=== PATIENT | female | born 1955 | race Caucasian/White ===

== ENCOUNTER → 2017-08-27 | Outpatient (CLI) | payer OTHER ==
[~2017-08-27] MED LIST: ESOM20 PO; FAMO40 PO; GLUCHON PO; MULVITMINF PO; PROG100 PO; PROM25 PO; RXHYDMOR2 PO; RXONDA4ODT MM; SUCR1SU PO; [UNRECOGNIZED DRUG - OTHER]
== END ==
LOC: LAB SHORT 07:28 → PLD 07:28 → EDSTATUS 09:12
DX: D22.5 Melanocytic nevi of trunk (principal); D36.17 Benign neoplasm of peripheral nerves and autonomic nervous system of trunk, unspecified
CPT/HCPCS: 88305

== ENCOUNTER 2017-10-25 08:39 | Day surgery (SDC) | payer OTHER ==
[~2017-10-25] VITALS: Ht 167.6 cm; Wt 69.6 kg
[~2017-10-25 08:39] MED LIST changes: +Climara Pro Pa1 EACH; +MEDR2.5 PO; +NAPR500 PO
== END 2017-10-25 10:40 | disposition home or self-care (01) ==
LOC: ORSCSDS 08:39
PROVIDERS: Internal Medicine Gastroenterology
PROC: 0DJD8ZZ Inspection of Lower Intestinal Tract, Via Natural or Artificial Opening Endoscopic (ICD-10-PCS; principal; 2017-10-25 10:00)
DX: Z12.11 Encounter for screening for malignant neoplasm of colon (principal); K63.89 Other specified diseases of intestine; K64.8 Other hemorrhoids; Z79.899 Other long term (current) drug therapy

== ENCOUNTER → 2018-09-29 | Outpatient (CLI) | payer OTHER ==
[2018-10-03 15:07] LABS: HPV 16 Negative (Negative); HPV 18 Negative (Negative); HPV OTHER HR TYPES Negative (Negative)
== END | disposition home or self-care (01) ==
LOC: LAB 10:34 → LAB SHORT 10:34
PROVIDERS: Obstetrics & Gynecology Gynecology
DX: Z12.4 Encounter for screening for malignant neoplasm of cervix (principal)
CPT/HCPCS: 87624; G0123

== ENCOUNTER → 2022-01-31 | Outpatient (CLI) | payer MEDICARE ==
[2022-01-31 13:38] LABS: BASOPHILS ABSOLUTE AUTO 0.08 K/mm3 (0.00-0.23); BASOPHILS PERCENT AUTO 1 % (0-2); EOSINOPHILS ABSOLUTE AUTO 0.13 K/mm3 (0.00-0.68); EOSINOPHILS PERCENT AUTO 2 % (0-6); Hematocrit 40.3 % (33.0-51.0); Hemoglobin 13.9 g/dL (11.5-16.0); IMMATURE GRAN ABSOLUTE AUTO 0.03 K/mm3 (0.00-0.10); IMMATURE GRAN PERCENT AUTO 1 % (0-1); LYMPHOCYTES ABSOLUTE AUTO 1.58 K/mm3 (0.84-5.20); LYMPHOCYTES PERCENT AUTO 26 % (21-46); MONOCYTES ABSOLUTE AUTO 0.46 K/mm3 (0.16-1.47); MONOCYTES PERCENT AUTO 8 % (4-13); Mean Corpuscular HGB 29.7 pg (26.0-34.0); Mean Corpuscular HGB Conc 34.5 g/dL (31.5-36.5); Mean Corpuscular Volume 86 fL (80-100); Mean Platelet Volume 9.4 fL (9.1-12.4); NEUTROPHILS ABSOLUTE AUTO 3.72 K/mm3 (1.96-9.15); NEUTROPHILS PERCENT AUTO 62 % (41-73); Platelet Count 222 K/mm3 (150-400); RDW Coefficient Variation 12.7 % (11.7-14.2); Red Blood Cell Count 4.68 M/mm3 (3.80-5.20)
[2022-01-31 13:55] LABS: Albumin, Blood 4.3 g/dL (3.4-5.0); Albumin/Globulin Ratio 1.7 (0.8-1.8); Bilirubin, Total 0.7 mg/dL (0.1-1.0); Bun/Creatinine Ratio 12.4 (12.0-20.0); Calcium, Blood 8.8 mg/dL (8.5-10.1); Creatinine, Blood 0.97 mg/dL (0.40-1.00); Globulin, Blood 2.6 g/dL (2.2-4.0); Total Protein, Blood 6.9 g/dL (6.4-8.2)
== END | disposition home or self-care (01) ==
LOC: LAB 13:34 → LAB SHORT 13:34
PROVIDERS: General Practice
DX: R07.9 Chest pain, unspecified (principal)
CPT/HCPCS: 80053; 82550; 84484; 85025

== ENCOUNTER 2024-06-07 06:55 | Day surgery (SDC) | payer MEDICARE, OTHER ==
[~2024-06-07] VITALS: Ht 167.6 cm; Wt 76.7 kg
[~2024-06-07 06:55] MED LIST changes: +Balanced Salt Epinephrine Irrigation Solution 500 mL IR SCH; +Diazepam 5 MG Tab PO PRN; +Diazepam 5 MG Tab PO SCH; +Lidocaine HCl/Pf 1% 5 ML VIAL ONE; +Lidocaine HCl/Pf 1% 5 ML VIAL XX SCH; +Moxifloxacin HCL 0.5 MG/0.1 ML 0.4MLSYR LEFTEYE SCH; +NITR.4SL SL; +Ondansetron 4 MG SoluTab MM PRN; +PHENYLEPHRINE\\TROPICAMIDE\\TETRACAINE OPHTHALMIC DILATING SOLN LEFTEYE PRN; +Povidone-Iodine 450 DROP/30 ML Solution LEFTEYE SCH; +Povidone-Iodine 450 DROP/30 ML Solution ONE; +Tetracaine HCl/Pf 0.5% Opth Soln 4 ml ONE; +Triamcinolone Inj Susp 40 MG / ML 1ML Vial INJ SCH; +Triamcinolone Inj Susp 40 MG / ML 1ML Vial ONE; +VITAMIN B-1250 MCG PO; +Vitamin D1000 UNI1 PO
[2024-06-07] MEDS ORDERED: Diazepam 10 MG Tab ONE (07:27)
[2024-06-07] MEDS ORDERED: Tropicamide 1% Opth Soln 15 ML BTL ONE (07:56)
--- NOTE | 2024-06-07 08:26 | NUR ---
06/07/24 0826 Veronika Hurd BP-138/71 P-75 SPO2- 100% W/ BB O2
[2024-06-07 09:02] VITALS: BP 149/81
== END 2024-06-07 09:01 | disposition home or self-care (01) ==
LOC: ORSCSDS 06:55
PROVIDERS: Ophthalmology
PROC: 08RK3JZ Replacement of Left Lens with Synthetic Substitute, Percutaneous Approach (ICD-10-PCS; principal; 2024-06-07 08:30)
DX: H25.812 Combined forms of age-related cataract, left eye (principal); Z79.899 Other long term (current) drug therapy
CPT/HCPCS: A9270; J2003; J3301; V2632